=== PATIENT | male | born 1935 | race Caucasian/White ===

== ENCOUNTER 2017-07-15 06:03 | Day surgery (SDC) | payer MEDICARE, OTHER ==
[~2017-07-15] VITALS: Ht 177.8 cm; Wt 89.5 kg
[2017-07-15] MEDS ORDERED: EPINEPHRINE 1 MG/ML, 1ML ONE (06:52)
[2017-07-15] MEDS ORDERED: BUPIVACAINE/PF 0.5% ONE (06:52)
[2017-07-15] MEDS ORDERED: LACTATED RINGERS 1,000 ML IV SCH (06:56)
[2017-07-15 06:59] VITALS: BP 151/75
[2017-07-15] MEDS ORDERED: CEFAZOLIN 1,000 MG ONE (07:00)
[2017-07-15] MEDS ORDERED: SUCCINYLCHOLINE 20 MG/ML, 10ML ONE (07:00)
[2017-07-15] MEDS ORDERED: GLYCOPYRROLATE 0.2MG/1ML, 5ML ONE (07:00)
[2017-07-15] MEDS ORDERED: ONDANSETRON 2MG/ML, 2ML ONE (07:00)
[2017-07-15] MEDS ORDERED: NEOSTIGMINE 1 MG/ML, 10ML ONE (07:00)
[2017-07-15] MEDS ORDERED: PROPOFOL 10 MG/ML, 20ML ONE ×2 (07:00→07:18)
[2017-07-15] MEDS ORDERED: DEXAMETHASONE 4 MG/ML, 1ML ONE (07:00)
[2017-07-15] MEDS ORDERED: FENTANYL PF 100 MCG/2ML ONE (07:00)
[2017-07-15] MEDS ORDERED: ROCURONIUM 10MG/ML,5ML ONE (07:19)
[2017-07-15] MEDS ORDERED: LISI1POW PO (07:27)
[2017-07-15] MEDS ORDERED: ASPI-515 PO (07:27)
[2017-07-15] MEDS ORDERED: POTA99TA24 PO (07:27)
[2017-07-15] MEDS ORDERED: METO-282 PO (07:27)
[2017-07-15] MEDS ORDERED: LIDOCAINE-MPF 2% ,5ML ONE (07:29)
[2017-07-15] MEDS ORDERED: METOPROLOL 1 MG/ML, 5ML ONE (07:29)
[2017-07-15] MEDS ORDERED: HYDROcodone/APAP 7.5-325MG/15ML UDC PO PRN (07:30)
[2017-07-15] MEDS ORDERED: FENTANYL PF 100 MCG/2ML IV PRN (07:30)
[2017-07-15] MEDS ORDERED: OXYcodone 5 MG/5 ML ORAL.SOL UDC PO PRN (07:30)
[2017-07-15] MEDS ORDERED: ACETAMINOPHEN 325 MG TABLET PO PRN (07:30)
[2017-07-15] MEDS ORDERED: HYDROmorphone 1 MG/ML, 1ML IV PRN (07:30)
[2017-07-15] MEDS ORDERED: morphine SULFATE 10 MG/ML, 1ML IV PRN (07:30)
[2017-07-15] MEDS ORDERED: MEPERIDINE/PF 25MG/0.5ML IVPush PRN (07:30)
[2017-07-15] MEDS ORDERED: OMNIPAQUE 180 MG/ML, 20ML VIAL IT ONE (07:54)
[2017-07-15] MEDS ORDERED: ACETAMINOPHEN 650 MG/20.3 ML UDC ONE (08:54)
[2017-07-15] MEDS ORDERED: OXYcodone 5 MG/5 ML ORAL.SOL UDC ONE (08:54)
[2017-07-15] MEDS ORDERED: ASPIRIN 81 MG TABLET EC PO SCH (09:00)
[2017-07-15] MEDS ORDERED: METOPROLOL SUCCINATE 25 MG TAB.ER.24H PO SCH (09:00)
== END 2017-07-15 11:15 ==
LOC: OUT 06:03
PROVIDERS: ATTEND Orthopaedic Surgery Orthopaedic Surgery of the Spine
DX: M48.54XA Collapsed vertebra, not elsewhere classified, thoracic region, initial encounter for fracture (principal); I25.10 Atherosclerotic heart disease of native coronary artery without angina pectoris; Z88.1 Allergy status to other antibiotic agents; Z79.82 Long term (current) use of aspirin; Z87.39 Personal history of other diseases of the musculoskeletal system and connective tissue; Z98.890 Other specified postprocedural states
CPT/HCPCS: 22513; 72100; 93005; C1713; J0171; J0690; J2704; J3010; J3490; J7120; Q9965; J1100; J2405; J2710; J0330